=== PATIENT | female | born 1935 | race Caucasian/White ===

== ENCOUNTER 2017-02-02 08:31 | Emergency (ER) | payer MEDICARE, BC ==
--- NOTE | 2017-02-02 08:50 | Emergency Department Record ---
History of Present Illness - General Stated complaint: WEAKNESS Time Seen by Provider: 02/02/17 08:38 Source: Patient, Family Mode of Arrival: Ambulatory Limitations: No limitations - History of Present Illness Initial comments: 81 yo female presents with progressive weakness over the last month. She states the weakness has become worse the last few days. She states she feels tired and weak all over. She feels very shaky. No headaches or dizziness, no chest pain. She denies any new changes to her breathing. She is on home oxygen at all times. No chest pain. No abdominal pain. No nausea, vomiting or diarrhea. She does have edema of the legs. No focal weakness. Her PCP is Dr Harding. She and her family report decreased PO intake for several weeks. MD Complaint: Generalized weakness -: Month(s) (1) Location: Generalized Severity: Moderate Consistency: Constant Improves with: None Worsens with: Exertion, Movement Context: History of similar Associated Symptoms: Denies other symptoms - Ulysses Coma Scale Eye Response: (4) Open spontaneously Motor Response: (6) Obeys commands Verbal Response: (5) Oriented Saturnino Total: 15 - Related Data Previous Rx's Medication Instructions Recorded Ipratropium/Albuterol [Duoneb] 3 ml IH Q4H #120 ampul.neb. 04/03/15 Nystatin 1 apply TP BID #1 tube 12/13/15 Tiotropium Virgil [Spiriva] 1 cap IH DAILY #30 cap.w.dev 12/13/15 Allergies Allergy/AdvReac Type Severity Reaction Status Date / Time amoxicillin trihydrate AdvReac DIARRHEA Verified 02/02/17 08:59 [From Augmentin] potassium clavulanate AdvReac DIARRHEA Verified 02/02/17 08:59 [From Augmentin] Review of Systems Constitutional: Reports: Malaise, Weakness. Denies: Chills, Fever Eyes: Denies: Eye discharge, Eye pain, Photophobia, Vision change ENT: Denies: Congestion, Throat pain Respiratory: Denies: Cough, Dyspnea, Hemoptysis, Stridor, Wheezes Cardiovascular: Denies: Chest pain, Palpitations, Syncope Endocrine: Reports: Fatigue. Denies: Polydipsia, Polyuria Gastrointestinal: Denies: Abdominal pain, Diarrhea, Nausea, Vomiting Genitourinary: Denies: Dyspareunia, Dysuria, Frequency, Hematuria, Urgency Musculoskeletal: Denies: Arthralgia, Back pain, Myalgia, Neck pain Skin: Denies: Bruising, Change in color, Rash Neurological: Reports: Tremors, Weakness (generalized). Denies: Confusion, Headache, Numbness, Paresthesias, Tingling Psychiatric: Denies: Anxiety Hematological/Lymphatic: Denies: Blood Clots, Easy bleeding, Easy bruising, Swollen glands Past Medical History - SOCIAL HISTORY Smoking Status: Never smoker Drug Use: None - RESPIRATORY Hx Respiratory Disorders: Yes Hx COPD: Yes - CARDIOVASCULAR Hx Cardio Disorders: Yes Hx Abnormal EKG: Yes Hx Cardiac Cath: Yes Hx CHF: Yes Hx Pacemaker/Defib: Yes (bradycardia) - NEURO Hx Neuro Disorders: Yes Hx Seizures: Yes (no since pacemaker) - GI Hx GI Disorders: Yes Hx Abdominal Pain: Yes Hx Reflux: Yes Hx Irritable Bowel: Yes - Hx Genitourinary Disorders: Yes Hx Kidney Stones: Yes (lithotripsy 13days ago) - ENDOCRINE Hx Endocrine Disorders: Yes Hx Diabetes: Yes (Type II) Hx Thyroid Disease: No - MUSCULOSKELETAL Hx Musculoskeletal Disorders: Yes Hx Arthritis: Yes Hx Musculoskeletal Disease: Yes - PSYCH Hx Psych Problems: Yes Hx Depression: Yes - HEMATOLOGY/ONCOLOGY Hx Hematology/Oncology Disorders: Yes Hx Blood Disorders: Yes Hx Blood Transfusions: Yes Comment:: sarcoidosis Family Medical History Hx Cancer: Mother, Grandparents Hx Diabetes: Father, Mother Hx Heart Disease: Father, Mother, Children Hx HTN: Father, Mother Hx Kidney Disease: Children Hx Resp Disorders: Grandparents Physical Exam - General General Appearance: Alert, Oriented x3, Cooperative, No acute distress Limitations: No limitations - Head Head exam: Atraumatic, Normocephalic, Normal inspection - Eye Eye exam: Normal appearance, PERRL, EOMI. negative: Conjunctival injection, Periorbital swelling, Scleral icterus - ENT ENT exam: Normal exam, Mucous membranes moist Ear exam: Normal external inspection Nasal Exam: Normal inspection Mouth exam: Normal external inspection Teeth exam: Normal inspection Throat exam: Normal inspection - Neck Neck exam: Normal inspection, Full ROM. negative: Lymphadenopathy, Tenderness - Respiratory Respiratory exam: Decreased breath sounds. negative: Accessory muscle use, Chest wall tenderness, Respiratory distress, Rhonchi, Stridor - Cardiovascular Cardiovascular Exam: Regular rate, Normal rhythm, Normal heart sounds - GI/Abdominal GI/Abdominal exam: Soft. negative: Tenderness - Rectal Rectal exam: Deferred - exam: Deferred - Extremities Extremities exam: Full ROM, Pedal edema. negative: Tenderness - Back Back exam: Reports: Normal inspection, Full ROM. Denies: CVA tenderness (R), CVA tenderness (L), Muscle spasm, Rash noted, Tenderness - Neurological Neurological exam: Alert, CN II-XII intact, Oriented X3, Other (Generalized weakness, shaky with attemping to transfer from to bed). negative: Altered, Motor sensory deficit, Normal gait - Psychiatric Psychiatric exam: Normal affect, Normal mood. negative: Agitated, Anxious - Skin Skin exam: Dry, Intact, Normal color, Warm Course - Reevaluation(s) Reevaluation #1: EKG 08:55 Paced rhythm, rate 60, intervals Qt 475, left axis, ST non specific, capture noted. No changes from prior 02/02/17 09:06 The CBC is unremarkable except for chronic anemia. 02/02/17 09:13 The labs were reviewed The patient has acute renal failure with BUN of 100 and CR of 7.3 K is 5.[address] ordered of abdomen and pelvis 02/02/17 09:33 The son was placed with very little UOP 500cc bolus then 125/hour ordered 02/02/17 09:54 Son with <50cc output at this time 02/02/17 10:08 Patient is a full code 02/02/17 10:13 CT with diverticulosis and equivocal diverticulitis descending, no renal, ureteral obstruction, uterine fibroid. manager [place] for No Doc IM at [facility] paged. 02/02/17 10:18 Medical Decision Making - Lab Data Result diagrams: 02/02/17 08:45 02/02/17 08:45 Disposition Disposition: Transfer Clinical Impression: Weakness Acute renal failure Qualifiers: Acute renal failure type: unspecified Qualified Code(s): N17.9 - Acute kidney failure, unspecified Disposition: Acute Care Hospital Transfer Transfer To: [facility] Reason For Transfer: Acute Renal Failure Accepting Physician: Alexx Time Discussed w/Accepting Physician: 10:30 Condition: (2) Stable Time of Disposition: 10:20 Quality - Quality Measures Quality Measures: N/A - Blood Pressure Screening Does Patient Have Any of the Following: No Blood Pressure Classification: Normal BP Reading Systolic Measurement: 97 Diastolic Measurement: 56 Screening for High Blood Pressure: < Normal BP, F/U Not Required > [G3475]
[2017-02-02 09:02] LABS: BASO % 0.1 % (0-6); EOS % 1.4 % (0-6); GRAN % 69.8 % (47-80); HEMATOCRIT 32.9 % (35.0-47.0); HEMOGLOBIN 10.1 gm/dl (11.6-16.0); LYMPH % 22.7 % (16-45); MEAN CELL VOLUME 91.9 fl (81-97); MEAN CORPUSCULAR HEMOGLOBIN 28.2 pg (27-33); MEAN CORPUSCULAR HGB CONC 30.7 g/dl (32-36); MEAN PLATELET VOLUME 9.8 fl (7.4-10.4); PLATELET COUNT 348 K/uL (130-400); RED BLOOD COUNT 3.58 M/uL (3.80-5.40); RED CELL DISTRIBUTION WIDTH 16.7 % (11.5-14.5); WHITE BLOOD COUNT W/O DIFF 11.2 K/uL (4.2-12.2)
[2017-02-02 09:22] LABS: ALB/GLOB RATIO 0.7 (1.1-1.8); ALKALINE PHOSPHATASE 116 U/L (35-104); ALT/SGPT 13 U/L (<33); AST/SGOT 16 U/L (10.0-35.0); BLOOD UREA NITROGEN 100 mg/dL (8-23); CREATININE 7.3 mg/dL (0.5-0.9); EST GLOMERULAR FILTRATION RATE 6 mL/min; GLUCOSE,RANDOM 100 mg/dL (74-109); TOTAL PROTEIN 7.1 g/dL (6.6-8.7)
[2017-02-02 09:23] LABS: CREATINE PHOSPHOKINASE 61 U/L (26-192)
[2017-02-02 09:28] LABS: TROPONIN I < 0.30 ng/mL (0.00-0.300)
[2017-02-02 09:32] LABS: THYROID STIMULATING HORMONE 1.76 uIU/mL (0.270-4.20)
[2017-02-02] MEDS ORDERED: 0.9 % SODIUM CHLORIDE 1000ML 1,000 ML IV PRN (09:32)
--- NOTE | 2017-02-03 07:25 | CT SCAN REPORT ---
DATE: 02/02/2017. EXAM: CT OF THE ABDOMEN AND PELVIS WITHOUT CONTRAST. HISTORY: Renal failure. TECHNIQUE: CT of the abdomen and pelvis was performed without oral or intravenous contrast. This limits evaluation of bowel and solid visceral organs. COMPARISON: 01/05/2015 CT. FINDINGS: Limited evaluation of the lung bases shows scarring in each lung base. Osseous structures are grossly intact. Status post cholecystectomy. Limited evaluation of the liver and spleen is unremarkable. Splenic granulomata are incidentally noted. There are stable adrenal nodules bilaterally, likely adenomas. The visualized pancreas is unremarkable. Bilateral renal cortical thinning and atrophy. A stable 2.7 cm right renal cyst. Punctate, nonobstructing 2.0 mm left renal calculus. No obstructing calculus or hydronephrosis. There is a Pena catheter in the urinary bladder. Calcified uterine fibroids. No gross evidence for bowel obstruction. Descending and sigmoid colon diverticulosis. Subjective areas of wall thickening involving the descending colon with some equivocal surrounding inflammation may reflect minor diverticulitis. No abscess, free air, or free fluid. IMPRESSION: 1. SIGMOID/DESCENDING COLON DIVERTICULOSIS WITH QUESTIONABLE MINOR DIVERTICULITIS. NO ABSCESS, FREE AIR, OR FREE FLUID. 2. A PENA CATHETER IN THE URINARY BLADDER, LIMITING ITS EVALUATION. NONOBSTRUCTING LEFT RENAL CALCULUS. NO HYDRONEPHROSIS. STABLE RIGHT RENAL CYST. 3. CALCIFIED UTERINE FIBROIDS. JOB NUMBER: [id number] [facility]
== END 2017-02-02 11:07 | disposition short-term general hospital (02) ==
LOC: ER 08:31
DX: N17.9 Acute kidney failure, unspecified (principal); R53.1 Weakness; J44.9 Chronic obstructive pulmonary disease, unspecified; I50.9 Heart failure, unspecified; E11.9 Type 2 diabetes mellitus without complications; R60.0 Localized edema; Z99.81 Dependence on supplemental oxygen
CPT/HCPCS: 74176; 80053; 82550; 83735; 84443; 84484; 85025; 93005; 93010; 96360; 99285

== ENCOUNTER 2017-05-28 09:55 | Emergency (ER) | payer MEDICARE, BC ==
--- NOTE | 2017-05-28 10:05 | Emergency Department Record ---
History of Present Illness - General Chief complaint: Pain Stated complaint: HANDS SWELLING/PAIN Time Seen by Provider: 05/28/17 09:59 Source: Patient, Family Mode of Arrival: Ambulatory Limitations: No limitations - History of Present Illness Initial comments: 81 yo female presents with pain in numerous joints for about 3 days. She states her shoulders, elbows, hands, knees, and feet/ankles hurt. The onset has been gradual for 3 days. She has noted some swelling as well. No fevers. No warmth. No redness of the areas. No cough or flu symptoms. No chest pain, back pain, abdominal pain or diarrhea. No falls or trauma. PCP Gupta. STONE Complaint: Extremity pain, Joint pain, Joint swelling -: Days(s) (4) Location: Bilateral, Ankle, Elbow, Foot, Forearm, Hand, Knee, Shoulder -: Yes Arthralgia Radiation: Distal Quality: Aching Consistency: Constant Improves with: Nothing Worsens with: Exertion, Palpation, Walking, Weight bearing Associated Symptoms: Denies other symptoms, Arthralgias - Related Data Previous Rx's Medication Instructions Recorded Ipratropium/Albuterol [Duoneb] 3 ml IH Q4H #120 ampul.neb. 04/03/15 Nystatin 1 apply TP BID #1 tube 12/13/15 Tiotropium [place] [Spiriva] 1 cap IH DAILY #30 cap.w.dev 12/13/15 Allergies Allergy/AdvReac Type Severity Reaction Status Date / Time amoxicillin trihydrate AdvReac DIARRHEA Verified 02/02/17 08:59 [From Augmentin] potassium clavulanate AdvReac DIARRHEA Verified 02/02/17 08:59 [From Augmentin] Review of Systems Constitutional: Denies: Chills, Fever, Malaise, Weakness Eyes: Denies: Eye discharge, Eye pain, Photophobia, Vision change ENT: Denies: Congestion, Throat pain Respiratory: Denies: Cough, Dyspnea, Hemoptysis, Stridor, Wheezes Cardiovascular: Denies: Chest pain, Syncope Endocrine: Denies: Fatigue Gastrointestinal: Denies: Abdominal pain, Diarrhea, Nausea, Vomiting Genitourinary: Denies: Dysuria, Urgency Musculoskeletal: Reports: Arthralgia, Joint swelling. Denies: Back pain (No back pain), Myalgia, Neck pain Skin: Denies: Bruising, Change in color, Rash Neurological: Denies: Confusion, Headache, Numbness, Weakness Psychiatric: Denies: Anxiety Hematological/Lymphatic: Denies: Blood Clots, Easy bleeding, Easy bruising, Swollen glands Past Medical History - SOCIAL HISTORY Smoking Status: Never smoker Drug Use: None - RESPIRATORY Hx Respiratory Disorders: Yes Hx COPD: Yes - CARDIOVASCULAR Hx Cardio Disorders: Yes Hx Abnormal EKG: Yes Hx Cardiac Cath: Yes Hx CHF: Yes Hx Pacemaker/Defib: Yes (bradycardia) - NEURO Hx Neuro Disorders: Yes Hx Seizures: Yes (no since pacemaker) - GI Hx GI Disorders: Yes Hx Abdominal Pain: Yes Hx Reflux: Yes Hx Irritable Bowel: Yes - Hx Genitourinary Disorders: Yes Hx Kidney Stones: Yes (lithotripsy 13days ago) - ENDOCRINE Hx Endocrine Disorders: Yes Hx Diabetes: Yes (Type II) Hx Thyroid Disease: No - MUSCULOSKELETAL Hx Musculoskeletal Disorders: Yes Hx Arthritis: Yes Hx Musculoskeletal Disease: Yes - PSYCH Hx Psych Problems: Yes Hx Depression: Yes - HEMATOLOGY/ONCOLOGY Hx Hematology/Oncology Disorders: Yes Hx Blood Disorders: Yes Hx Blood Transfusions: Yes Comment:: sarcoidosis Family Medical History Hx Cancer: Mother, Grandparents Hx Diabetes: Father, Mother Hx Heart Disease: Father, Mother, Children Hx HTN: Father, Mother Hx Kidney Disease: Children Hx Resp Disorders: Grandparents Physical Exam - General General Appearance: Alert, Oriented x3, Cooperative, No acute distress Limitations: No limitations - Head Head exam: Atraumatic, Normal inspection - Eye Eye exam: Normal appearance. negative: Conjunctival injection, Periorbital swelling, Scleral icterus - ENT ENT exam: Normal exam, Mucous membranes moist Ear exam: Normal external inspection Nasal Exam: Normal inspection Mouth exam: Normal external inspection - Neck Neck exam: Normal inspection, Full ROM. negative: Tenderness - Respiratory Respiratory exam: Normal lung sounds bilaterally. negative: Respiratory distress, Rhonchi, Stridor, Wheezes - Cardiovascular Cardiovascular Exam: Regular rate, Normal rhythm, Normal heart sounds - GI/Abdominal GI/Abdominal exam: Soft. negative: Tenderness - Rectal Rectal exam: Deferred - exam: Deferred - Extremities Extremities exam: Full ROM, Joint swelling, Normal capillary refill, Tenderness , Other (Tenderness to both shoulder with full ROM, Elbows tender with full unlimited ROM, Knees normal inspection tender, no effusion, bilateral ankle edema with tenderness no erythema). negative: Normal inspection, Calf tenderness, Pedal edema - Back Back exam: Reports: Full ROM. Denies: CVA tenderness (R), CVA tenderness (L), Muscle spasm, Paraspinal tenderness, Tenderness, Vertebral tenderness - Neurological Neurological exam: Alert, Normal gait, Oriented X3, Reflexes normal - Psychiatric Psychiatric exam: Normal affect, Normal mood - Skin Skin exam: Dry, Intact, Normal color, Warm Course - Reevaluation(s) Reevaluation #1: 05/28/17 10:06 The patient presents with diffuse arthralgias, no fever, no warmth of joints or erythema. No Flu like symptoms 05/28/17 10:09 The patient was transferred to [facility] for renal failure with a CR of 7.3 in February. Most recent CR was 1.8 05/28/17 11:13 The labs were reviewed The CR is 2.1 increased from 1.8 in March The Uric acid is 14.3 The CRP CRP is elevated at 24.5 05/28/17 11:15 Glucose is elevated at 218 05/28/17 11:20 The patient's energy conservation technician is Dr Pulido at [facility]. 05/28/17 11:47 I SW The patient's neophrologist Dr Pulido. He recommends transfer for IV infusion of Elitek and admission. Dr Hamilton accepts the patient for transfer and admission to [facility] [place]. 05/28/17 12:30 Bed assigned at [facility]. Stable for transfer. Medical Decision Making - Lab Data Result diagrams: 05/28/17 10:42 05/28/17 10:42 Disposition Disposition: Transfer Clinical Impression: Elevated blood uric acid level, Renal insufficiency Arthralgia Qualifiers: Joint pain location: unspecified Qualified Code(s): M25.50 - Pain in unspecified joint Gout Qualifiers: Gout site: unspecified site Gout etiology: unspecified cause Chronicity: unspecified Qualified Code(s): M10.9 - Gout, unspecified Disposition: Acute Care Hospital Transfer Transfer To: [facility] Reason For Transfer: Renal Insufficency, elevated Uric Acid Accepting Physician: Alfonso Time Discussed w/Accepting Physician: 11:00 Condition: (1) Good Forms: Patient Portal Access Time of Disposition: 11:46 Quality - Quality Measures Quality Measures: N/A - Blood Pressure Screening Does Patient Have Any of the Following: No Blood Pressure Classification: Normal BP Reading Systolic Measurement: 117 Diastolic Measurement: 67 Screening for High Blood Pressure: < Normal BP, F/U Not Required > [G8783] Pre-Hypertensive Follow-up Interventions: Referral to alternative/primary care provider.
[2017-05-28 10:48] LABS: BASO % 0.1 % (0-6); EOS % 0.7 % (0-6); GRAN % 78.5 % (47-80); HEMATOCRIT 32.6 % (35.0-47.0); HEMOGLOBIN 9.9 gm/dl (11.6-16.0); LYMPH % 12.4 % (16-45); MEAN CELL VOLUME 87.9 fl (81-97); MEAN CORPUSCULAR HGB CONC 30.4 g/dl (32-36); MEAN PLATELET VOLUME 9.4 fl (7.4-10.4); MONO % 8.3 % (0-9); PLATELET COUNT 320 K/uL (130-400); RED BLOOD COUNT 3.71 M/uL (3.80-5.40); RED CELL DISTRIBUTION WIDTH 16.2 % (11.5-14.5); WHITE BLOOD COUNT W/O DIFF 12.4 K/uL (4.2-12.2)
[2017-05-28] MEDS ORDERED: HYDROCODONE/APAP 7.5/325MG TABLET PO ONE (10:48)
[2017-05-28 10:50] LABS: MEAN CORPUSCULAR HEMOGLOBIN 26.6 pg (27-33)
[2017-05-28 11:08] LABS: ALBUMIN 3.6 g/dL (4.0-5.0); CREATININE 2.1 mg/dL (0.5-0.9)
[2017-05-28 11:09] LABS: ALB/GLOB RATIO 0.8 (1.1-1.8); BILIRUBIN,TOTAL 0.5 mg/dL (0.2-1.0); C-REACTIVE PROTEIN 24.25 mg/dL (<0.5)
[2017-05-28] MEDS ORDERED: METHYLPREDNISOLONE PF 125MG/VIAL IVP SCH (11:15)
[2017-05-28] MEDS ORDERED: METHYLPREDNISOLONE PF 125MG/VIAL IVP ONE (11:18)
[2017-05-28 11:25] LABS: ERYTHROCYTE SEDIMENTATION RATE 104 mm/hr (0-30)
[2017-05-28] MEDS ORDERED: SODIUM CHLORIDE 0.9% 500 ML IV ONE (11:27)
== END 2017-05-28 13:35 | disposition short-term general hospital (02) ==
LOC: ER 09:55
DX: N17.9 Acute kidney failure, unspecified (principal); M10.9 Gout, unspecified; J44.9 Chronic obstructive pulmonary disease, unspecified; I50.9 Heart failure, unspecified; E11.9 Type 2 diabetes mellitus without complications; M25.512 Pain in left shoulder; M25.511 Pain in right shoulder; Z95.0 Presence of cardiac pacemaker
CPT/HCPCS: 80053; 84550; 85025; 85651; 86140; 96361; 96374; 99285; J2930